=== PATIENT | female | born 1980 | race African-American/Black ===

== ENCOUNTER 2024-06-26 15:48 | Emergency (ER) | payer SELFPAY ==
[2024-06-26] MEDS ORDERED: Bacitracin 1 PK ONE (16:21)
[2024-06-26] MEDS ORDERED: Cephalexin 250 MG CAP ONE (16:21)
[2024-06-26] MEDS ORDERED: Sulfameth/Trimethoprim DS 800-160mg TAB ONE (16:21)
== END 2024-06-26 17:34 | disposition home or self-care (01) ==
LOC: NAV ERS 15:48
DX: S81.832A Puncture wound without foreign body, left lower leg, initial encounter (principal); S91.012A Laceration without foreign body, left ankle, initial encounter; W22.8XXA Striking against or struck by other objects, initial encounter
CPT/HCPCS: 87070; 87077; 87186; 87205; 99283